=== PATIENT | female | born 1955 | race Caucasian/White ===

== ENCOUNTER 2019-01-01 15:11 | Emergency (ER) | payer MEDICAID, MEDICARE, OTHER ==
[2019-01-01 15:44] VITALS: BP 144/84
--- NOTE | 2019-01-01 15:52 | ED ---
Throat Pain/Nasal Congestion - HPI Summary HPI Summary: 63 yr old female with the complaint of runny nose, green sinus drainage, post nasal drip, sinus pressure, cough. Onset over the past few days. Symptoms are moderate. No other complaints. - History of Current Complaint Chief Complaint: UCRespiratory Time Seen by Provider: 01/01/19 15:34 - Allergies/Home Medications Allergies/Adverse Reactions: Allergies Allergy/AdvReac Type Severity Reaction Status Date / Time Sulfa (Sulfonamide Allergy Unknown Hives Verified 01/01/19 15:29 Antibiotics) Home Medications: Home Medications ARIPiprazole TAB* [Abilify TAB*] 10 mg PO DAILY 01/01/19 [History Confirmed ] DULoxetine DR CAP* [Cymbalta CAP*] 120 mg PO DAILY 01/01/19 [History Confirmed 01/01/19] Gabapentin CAP(*) [Neurontin 400 mg CAP(*)] 800 mg PO TID 01/01/19 [History Confirmed 01/01/19] Hydrochlorothiazide TAB* [Hydrodiuril TAB*] 25 mg PO DAILY 01/01/19 [History Confirmed 01/01/19] Linaclotide [Linzess] 72 mcg PO DAILY 01/01/19 [History Confirmed 01/01/19] Naproxen Sodium [Aleve] 220 mg PO PRN 01/01/19 [History] Potassium Chlor TAB* [Klor Con ER TAB*] 10 meq PO BID 01/01/19 [History Confirmed 01/01/19] Zolpidem TAB* [Ambien TAB*] 5 mg PO BEDTIME PRN 01/01/19 [History Confirmed ] amLODIPine TAB* [Norvasc 5 mg TAB*] 5 mg PO DAILY 01/01/19 [History Confirmed ] PMH/Surg Hx/FS Hx/Imm Hx Cardiovascular History: Reports: Hx Hypertension - Cancer History Cancer Type, Location and Year: BREAST CA - Surgical History Surgery Procedure, Year, and Place: RIGHT LUMPECTOMY. TWO SPINAL FUSIONS-NECK. FOOT LEFT SURGERY-BONE SPUR. KNEE-RIGHT. APPENDECTOMY /PARTIAL OPHORECTOMY. TONSILLECTOMY Infectious Disease History: No Infectious Disease History: Denies: Traveled Outside the [place] in Last 30 Days - Family History Known Family History: Positive: None - Social History Occupation: Retired Alcohol Use: Occasionally Substance Use Type: Reports: None Smoking Status (MU): Former Smoker Have You Smoked in the Last Year: No Review of Systems Constitutional: Negative Positive: Nasal Discharge, Other - sinus pain All Other Systems Reviewed And Are Negative: Yes Physical Exam Triage Information Reviewed: Yes Vital Signs On Initial Exam: Initial Vitals Temp Pulse Resp BP Pulse Ox 98 F 90 16 144/84 100 01/01/19 15:34 01/01/19 15:34 01/01/19 15:34 01/01/19 15:34 01/01/19 15:34 Vital Signs Reviewed: Yes Appearance: Positive: Well-Appearing, No Pain Distress Skin: Positive: Warm, Skin Color Reflects Adequate Perfusion Head/Face: Positive: Normal Head/Face Inspection Eyes: Positive: EOMI ENT: Positive: Pharynx normal, Nasal congestion, Nasal drainage, TMs normal, Other - bilateral frontal and maxillary sinus tenderness Neck: Positive: Supple Respiratory/Lung Sounds: Positive: Clear to Auscultation, Breath Sounds Present Cardiovascular: Positive: RRR. Negative: Murmur Abdomen Description: Negative: Distended Musculoskeletal: Positive: Strength/ROM Intact Neurological: Positive: Sensory/Motor Intact, Alert, Oriented to Person Place, Time, CN Intact II-III, Normal Gait, Speech Normal Psychiatric: Positive: Normal Diagnostics - Vital Signs Vital Signs Temp Pulse Resp BP Pulse Ox 01/01/19 15:34 98 F 90 16 144/84 100 - Laboratory Lab Statement: Any lab studies that have been ordered have been reviewed, and results considered in the medical decision making process. EENT Course/Dx - Course Course Of Treatment: 63 yr old with sinusitis. Rx with Augmentin. - Diagnoses Provider Diagnoses: Sinusitis, Hypertension Discharge - Sign-Out/Discharge Documenting (check all that apply): Patient Departure All imaging exams completed and their final reports reviewed: No Studies - Discharge Plan Condition: Good Disposition: HOME Prescriptions: Amoxicillin/Clavulanate TAB* [Augmentin TAB 875*] 875 mg PO BID #20 tab Patient Education Materials: Sinusitis (ED), Hypertension (ED) Referrals: No Primary Care Phys,NOPCP [Primary Care Provider] - [facility] [place] [facility] [Outside] - 2 Days - Billing Disposition and Condition Condition: GOOD Disposition: Home
== END 2019-01-01 16:01 | disposition home or self-care (01) ==
LOC: UCCORT 15:11
DX: J32.9 Chronic sinusitis, unspecified (principal); I10 Essential (primary) hypertension; R05 Cough; Z87.891 Personal history of nicotine dependence; Z88.2 Allergy status to sulfonamides; Z79.899 Other long term (current) drug therapy
CPT/HCPCS: 99212; G0463